=== PATIENT | male | born 1950 | race Caucasian/White ===

== ENCOUNTER → 2016-09-06 | Outpatient (CLI) | payer BC, MEDICARE ==
--- NOTE | 2016-09-06 19:40 | XR ---
EXAMINATION TYPE: XR chest 2V DATE OF EXAM: 09/06/2016 COMPARISON: NONE INDICATION: Cough pneumonia TECHNIQUE: Frontal and lateral views of the chest are obtained. FINDINGS: The heart size is normal. The pulmonary vasculature is normal. There is a left upper lobe infiltrate. Correlate for pneumonia. Some retrocardiac infiltrate is likel y present. Minimal effusion is not excluded.. IMPRESSION: 1. Left upper and left lower lobe infiltrates. Correlate for pneumonia. Follow-up to clearing is janny mmended.
== END | disposition home or self-care (01) ==
LOC: RADXRMAIN 18:32
PROVIDERS: ATTEND Family Medicine
DX: R91.8 Other nonspecific abnormal finding of lung field (principal); R05 Cough
CPT/HCPCS: 71020

== ENCOUNTER 2022-08-09 16:31 | Emergency (ER) | payer BC, MEDICARE ==
[2022-08-09 17:02] VITALS: BP 143/82
[2022-08-09] MEDS ORDERED: IBUPROFEN 600 MG TAB PO STA (18:52)
[2022-08-09] MEDS ORDERED: SODIUM CHLORIDE 0.9% 1,000 ML IV ONE (18:52)
[2022-08-09 20:16] LABS: Basophils % (A) 0 %; Eosinophils % (A) 0 %; HCT 45.3 % (39.0-53.0); HGB 15.3 gm/dL (13.0-17.5); Lymphocytes # (A) 0.8 k/uL (1.0-4.8); Lymphocytes % (A) 17 %; MCH 30.8 pg (25.0-35.0); MCHC 33.8 g/dL (31.0-37.0); MCV 91.2 fL (80.0-100.0); Mean Platelet Volume 7.2; Monocytes # (A) 0.4 k/uL (0-1.0); Monocytes % (A) 9 %; Neutrophils # (A) 3.3 k/uL (1.3-7.7); Neutrophils % (A) 71 %; Platelet Count 201 k/uL (150-450); RBC 4.96 m/uL (4.30-5.90); RDW 12.2 % (11.5-15.5); WBC 4.6 k/uL (3.8-10.6)
--- NOTE | 2022-08-09 20:16 | XR ---
EXAMINATION TYPE: XR chest 2V DATE OF EXAM: 08/09/2022 8:11 PM COMPARISON: Chest radiographs 09/06/2016. TECHNIQUE: XR chest 2V Frontal and lateral views of the chest. CLINICAL INDICATION:Male, 71 years old with history of COVID +; FINDINGS: Lungs/Pleura: Prominent interstitial lung markings are seen scattered throughout the lungs with zoltan ening of the diaphragm and increased lucency of the lung apices. No evidence of focal consolidation, pneumothorax or pleural effusion. Pulmonary vascularity: Unremarkable. Heart/mediastinum: Cardiomediastinal silhouette is unremarkable. Musculoskeletal: No acute osseous pathology. IMPRESSION: 1. No acute cardiopulmonary disease process. 2. COPD changes.
[2022-08-09 20:32] LABS: ALT 32 U/L (4-49); AST 42 U/L (17-59); African American GFR (CKD) >90 (>60 ml/min/1.73 sqM); Alkaline Phosphatase 109 U/L (38-126); Anion Gap 16 mmol/L; Blood Urea Nitrogen 26 mg/dL (9-20); Calcium 9.2 mg/dL (8.4-10.2); Carbon Dioxide 24 mmol/L (22-30); Chloride 97 mmol/L (98-107); Glucose 143 mg/dL (74-99); Non-African American GFR(CKD) >90 (>60 ml/min/1.73 sqM); Potassium 4.6 mmol/L (3.5-5.1); Sodium 137 mmol/L (137-145); Total Bilirubin 0.5 mg/dL (0.2-1.3); Total Protein 8.6 g/dL (6.3-8.2)
[2022-08-09 20:51] VITALS: PULSE 100; RESP 17; TEMP 100
[2022-08-09] MEDS ORDERED: ONDANSETRON 4 MG/2 ML VIAL IVP STA (20:52)
[2022-08-09 21:02] LABS: Glucose,Whole Blood 118 mg/dL (70-110)
--- NOTE | 2022-08-09 21:58 | ED ---
General Adult HPI - General Chief complaint: Shortness of Breath Stated complaint: covid + Time Seen by Provider: 08/09/22 18:14 Source: patient, RN notes reviewed Mode of arrival: ambulatory Limitations: no limitations - History of Present Illness Initial comments: 71-year-old female with a past medical history significant for diabetes type 2 presents to the emergency department with a chief complaint of Covid. Patient reports that he was seen at urgent care prior to arrival who recommended the patient be evaluated in the ED. Patient is one of cough, fever, nausea, vomiting, diarrhea. This is due to his symptoms. She did receive her Covid and influenza vaccinations. He denies recent sick contacts. He denies any dizziness, lightheadedness, vision changes, chest pain, shortness of breath, dyspnea. - Related Data Allergies Allergy/AdvReac Type Severity Reaction Status Date / Time No Known Allergies Allergy Verified 08/09/22 17:02 Review of Systems ROS Statement: Those systems with pertinent positive or pertinent negative responses have been documented in the HPI. ROS Other: All systems not noted in ROS Statement are negative. Past Medical History Past Medical History: Diabetes Mellitus, Hypertension Additional Past Medical History / Comment(s): COVID 2022 History of Any Multi-Drug Resistant Organisms: None Reported Past Surgical History: No Surgical Hx Reported Past Psychological History: No Psychological Hx Reported Smoking Status: Former smoker Past Alcohol Use History: None Reported Past Drug Use History: None Reported General Exam - General Exam Comments Initial Comments: General: Alert, in no acute distress Head: atraumatic normocephalic. Eyes PERRL, EOMI intact, mucous membranes moist Respiratory: Lungs clear to auscultation bilaterally Cardiovascular: Tachycardic Abdominal: Soft without guarding or rebound Extremities: Normal inspection with full range of motion and normal capillary refill Neuroogic: alert and oriented 3, CN II-XII intact, able to ambulate with steady gait Skin: warm dry and intact with normal color Limitations: no limitations Course Vital Signs 08/09/22 08/09/22 08/09/22 16:59 19:02 20:49 Temperature 99.9 F H 100.0 F H Pulse Rate 111 H 100 Respiratory 20 17 Rate Blood Pressure 143/82 O2 Sat by Pulse 99 95 95 Oximetry Medical Decision Making - Medical Decision Making Was pt. sent in by a medical professional or institution (, PA, MACHINE TOOL DRESSER, urgent care, hospital, or alf...) When possible be specific @ -[No] Did you speak to anyone other than the patient for history (EMS, parent, family, police, friend...)? What history was obtained from this source @ -[No] Did you review nursing and triage notes (agree or disagree)? Why? @ -[I reviewed and agree with nursing and triage notes] Were old charts reviewed (outside hosp., previous admission, EMS record, old EKG, old radiological studies, urgent care reports/EKG's, alf records)? Report findings @ -[No old charts were reviewed] Differential Diagnosis (chest pain, altered mental status, abdominal pain women, abdominal pain men, vaginal bleeding, weakness, fever, dyspnea, syncope, headache, dizziness, GI bleed, back pain, seizure, CVA, palpatations, mental health, musculoskeletal)? @ -[not applicable] EKG interpreted by me (3pts min.). @ -[As above] X-rays interpreted by me (1pt min.). @ -[None done] CT interpreted by me (1pt min.). @ -[None done] U/S interpreted by me (1pt. min.). @ -[None done] What testing was considered but not performed or refused? (CT, X-rays, U/S, labs)? Why? @ -[None] What meds were considered but not given or refused? Why? @ -[None] Did you discuss the management of the patient with other professionals (professionals i.e. , PA, MACHINE TOOL DRESSER, lab, RT, psych nurse, health and social care teacher, electrical checkout mechanic, teacher, chemistry technical officer, case packer and sealer)? Give summary @ -[No] Was smoking cessation discussed for >3mins.? @ -[No] Was critical care preformed (if so, how long)? @ -[No] Were there social determinants of health that impacted care today? How? (Homelessness, low income, unemployed, alcoholism, drug addiction, transportation, low edu. Level, literacy, decrease access to med. care, usp, rehab)? @ -[No] Was there de-escalation of care discussed even if they declined (Discuss DNR or withdrawal of care, Hospice)? DNR status @ -[No] What co-morbidities impacted this encounter? (DM, HTN, Smoking, COPD, CAD, Cancer, CVA, ARF, Chemo, Hep., AIDS, mental health diagnosis, sleep apnea, mor bid obesity)? @ -[None] Was patient admitted / discharged? Hospital course, mention meds given and route, prescriptions, significant lab abnormalities, going to OR and other pertinent info. @ -Discharged. This is a 71-year-old male presents to the emergency department with COVID. Patient had a thorough history and physical exam p erformed while in the ED. Physical exam is essentially unremarkable heart rate regular rate and rhythm, lung sounds clear to auscultation bilaterally abdomen, abdomen soft and nontender. Patient had lab work and imaging performed which is essentially unremarkable. I discussed results in detail with the patient verbalized understanding and all questions were addressed. Patient was offered Paxil that it however he declined. She was given Tylenol, 1 L IV fluids with symptomatic relief on the ED. Return precautions were discussed at length. Patient discharged in stable condition. Case discussed with Dr. Ko, [facility] who agrees with plan of care Undiagnosed new problem with uncertain prognosis? @ -[No] Drug Therapy requiring intensive monitoring for toxicity (Heparin, Nitro, Insulin, Cardizem)? @ -[No] Were any procedures done? @ -[No] Diagnosis/symptom? @ - COVID 19 Acute, or Chronic, or Acute on Chronic? @ -Acute Uncomplicated (without systemic symptoms) or Complicated (systemic symptoms)? @ -Uncomplicated Side effects of treatment? @ -[No] Exacerbation, Progression, or Severe Exacerbation? @ -[No] Poses a threat to life or bodily function? How? (Chest pain, [place], [place], pneumonia, PE, COPD, DKA, ARF, appy, cholecystitis, CVA, Diverticulitis, Homicidal, S uicidal, threat to staff... and all critical care pts) @ -Low likelihood - Lab Data Result diagrams: 08/09/22 19:58 08/09/22 19:58 Lab Results 08/09/22 08/09/22 08/09/22 Range/Units 19:58 19:58 19:58 WBC 4.6 (3.8-10.6) k/uL RBC 4.96 (4.30-5.90) m/uL Hgb 15.3 (13.0-17.5) gm/dL Hct 45.3 (39.0-53.0) % MCV 91.2 (80.0-100.0) fL MCH 30.8 (25.0-35.0) pg MCHC 33.8 (31.0-37.0) g/dL RDW 12.2 (11.5-15.5) % Plt Count 201 (150-450) k/uL MPV 7.2 Neutrophils % 71 % Lymphocytes % 17 % Monocytes % 9 % Eosinophils % 0 % Basophils % 0 % Neutrophils # 3.3 (1.3-7.7) k/uL Lymphocytes # 0.8 L (1.0-4.8) k/uL Monocytes # 0.4 (0-1.0) k/uL Eosinophils # 0.0 (0-0.7) k/uL Basophils # 0.0 (0-0.2) k/uL Sodium 137 (137-145) mmol/L Potassium 4.6 (3.5-5.1) mmol/L Chloride 97 L (98-107) mmol/L Carbon Dioxide 24 (22-30) mmol/L Anion Gap 16 mmol/L BUN 26 H (9-20) mg/dL Creatinine 0.70 (0.66-1.25) mg/dL Est GFR (CKD-EPI)AfAm >90 (>60 ml/min/1.73 sqM) Est GFR (CKD-EPI)NonAf >90 (>60 ml/min/1.73 sqM) Glucose 143 H (74-99) mg/dL POC Glucose (mg/dL) (70-110) mg/dL POC Glu Branch Controller ID Calcium 9.2 (8.4-10.2) mg/dL Total Bilirubin 0.5 (0.2-1.3) mg/dL AST 42 (17-59) U/L ALT 32 (4-49) U/L Alkaline Phosphatase 109 (38-126) U/L Total Protein 8.6 H (6.3-8.2) g/dL Albumin 5.0 (3.5-5.0) g/dL Influenza Type A (PCR) Not Detected (Not Detectd) Influenza Type B (PCR) Not Detected (Not Detectd) RSV (PCR) Not Detected (Not Detectd) SARS-CoV-2 (PCR) Detected A (Not Detectd) 05/21/23 Range/Units 21:00 WBC (3.8-10.6) k/uL RBC (4.30-5.90) m/uL Hgb (13.0-17.5) gm/dL Hct (39.0-53.0) % MCV (80.0-100.0) fL MCH (25.0-35.0) pg MCHC (31.0-37.0) g/dL RDW (11.5-15.5) % Plt Count (150-450) k/uL MPV Neutrophils % % Lymphocytes % % Monocytes % % Eosinophils % % Basophils % % Neutrophils # (1.3-7.7) k/uL Lymphocytes # (1.0-4.8) k/uL Monocytes # (0-1.0) k/uL Eosinophils # (0-0.7) k/uL Basophils # (0-0.2) k/uL Sodium (137-145) mmol/L Potassium (3.5-5.1) mmol/L Chloride (98-107) mmol/L Carbon Dioxide (22-30) mmol/L Anion Gap mmol/L BUN (9-20) mg/dL Creatinine (0.66-1.25) mg/dL Est GFR (CKD-EPI)AfAm (>60 ml/min/1.73 sqM) Est GFR (CKD-EPI)NonAf (>60 ml/min/1.73 sqM) Glucose (74-99) mg/dL POC Glucose (mg/dL) 118 H (70-110) mg/dL POC Glu Branch Controller ID Matt Perez Calcium (8.4-10.2) mg/dL Total Bilirubin (0.2-1.3) mg/dL AST (17-59) U/L ALT (4-49) U/L Alkaline Phosphatase (38-126) U/L Total Protein (6.3-8.2) g/dL Albumin (3.5-5.0) g/dL Influenza Type A (PCR) (Not Detectd) Influenza Type B (PCR) (Not Detectd) RSV (PCR) (Not Detectd) SARS-CoV-2 (PCR) (Not Detectd) Disposition Clinical Impression: COVID-19 Disposition: HOME SELF-CARE Condition: Stable Instructions (If sedation given, give patient instructions): COVID-19 and Chronic Health Conditions (ED) Additional Instructions: Please return to the emergency department if symptoms worsen or persist Is patient prescribed a controlled substance at d/c from ED?: No Referrals: Angel Lemus MD [Primary Care Provider] - 1-2 days Time of Disposition: 21:57
== END 2022-08-09 22:43 | disposition home or self-care (01) ==
LOC: EC 16:31
DX: U07.1 COVID-19 (principal); I10 Essential (primary) hypertension; E11.9 Type 2 diabetes mellitus without complications; Z87.891 Personal history of nicotine dependence
CPT/HCPCS: 36415; 80053; 85025; 87636; 71046; 99285; 96374; 96361; J2405

== ENCOUNTER → 2024-04-21 | Outpatient (CLI) | payer MEDICARE ==
--- NOTE | 2024-04-21 07:56 | US ---
EXAMINATION TYPE: US carotid duplex BILAT DATE OF EXAM: 04/21/2024 COMPARISON: NONE CLINICAL INDICATION: Male, 73 years old with history of Z91.89 OTH PERSONAL RISK FACTORS, NOT ELSEWHE RE CL; stenosis Additional History: .... TECHNIQUE: Grayscale, color Doppler and spectral Doppler evaluation of the bilateral carotid systems and vertebral arteries. Indirect Doppler criteria was utilized. FINDINGS: EXAM MEASUREMENTS: RIGHT: Peak Systolic Velocity (PSV) cm/sec ----- Right CCA: 81.2 ----- Right ICA: 90.3 ----- Right ECA: 157 ICA/CCA ratio: 1.1 RIGHT: End Diastole cm/sec ----- Right CCA: 19.5 ----- Right ICA: 29.2 ----- Right ECA: 13.6 LEFT: Peak Systolic Velocity (PSV) cm/sec ----- Left CCA: 96.8 ----- Left ICA: 120 ----- Left ECA: 194 ICA/CCA ratio: 1.2 LEFT: End Diastole cm/sec ----- Left CCA: 16.9 ----- Left ICA: 39 ----- Left ECA: 15.2 VERTEBRALS (direction of flow): Right Vertebral: Antegrade Left Vertebral: Antegrade Rhythm: Normal BOWLING BALL ASSEMBLER NOTES: No significant stenosis seen Color Doppler imaging shows patency with blood flow throughout the carotid artery. Spectral waveforms are within normal limits. Atherosclerotic plaque identified within the bilateral common carotid jonathan biju and carotid bulbs. IMPRESSION: Right: No hemodynamically significant stenosis. Left: No hemodynamically significant stenosis. Criteria for Assigning % of Stenosis / Diameter reduction (Estimation based on the indirect measurements of the internal carotid artery velocities (ICA PSV). 1. Normal (no stenosis)=ICA PSV < 125 cm/s: ratio < 2.0: ICA EDV<40 cm/s. 2. Less than 50% stenosis=ICA PSV < 125 cm/s: ratio < 2.0: ICA EDV<40 cm/s. 3. 50 to 69% stenosis=ICA PSV of 125 to 230 cm/s: ration 2.0 ? 4.0: ICA EDV 40-100 cm/s. 4. Greater than 70% stenosis to near occlusion= ICA PSV > 230 cm/s: ratio > 4.0: ICA EDV > 100 cm/s. 5. Near occlusion= ICA PSV velocities may be low or undetectable: variable ratio and ICA EDV. 6. Total occlusion=unable to detect flow. [facility], , 04/21/2024 7:54 AM
== END | disposition home or self-care (01) ==
LOC: RADUSWWP 07:21
PROVIDERS: ATTEND Family Medicine
DX: Z91.89 Other specified personal risk factors, not elsewhere classified (principal)
CPT/HCPCS: 93880